=== PATIENT | female | born 1995 | race Caucasian/White ===

== ENCOUNTER 2018-11-29 23:04 | Emergency (ER) | payer OTHER ==
[2018-11-30] MEDS: KETOROLAC 30 MG INJ IM (02:57)
== END 2018-11-30 05:54 | disposition home or self-care (01) ==
LOC: FTE 23:04
DX: S20.219A Contusion of unspecified front wall of thorax, initial encounter (principal); M62.838 Other muscle spasm; V89.2XXA Person injured in unspecified motor-vehicle accident, traffic, initial encounter
CPT/HCPCS: 71046; 72040; 81025; 96372; 99284-25